=== PATIENT | male | born 1970 | race Caucasian/White ===

== ENCOUNTER 2019-01-23 10:57 | Outpatient (CLI) | payer OTHER ==
[2019-01-23] MEDS ORDERED: IV RINGERS,LACTATED 1000ML 1,000 ML IV SCH (11:10)
[2019-01-23] MEDS ORDERED: fentaNYL PF VIAL 100 MCG/2 ML VIAL ONE ×2 (11:14)
[2019-01-23] MEDS ORDERED: MIDAZOLAM HCL/PF 2 MG/2 ML VIAL. ONE ×2 (11:14)
[2019-01-23] MEDS ORDERED: ONDANSETRON PF 4 MG/2 ML VIAL. IV PRN (11:15)
[2019-01-23] MEDS ORDERED: LIDOCAINE 1% PF 2 ML VIAL. ID PRN (11:15)
[2019-01-23] MEDS ORDERED: fentaNYL PF VIAL 100 MCG/2 ML VIAL IV PRN ×2 (11:15)
[2019-01-23] MEDS ORDERED: KETAMINE HCL IN NACL, ISO-OSM 50 MG/5 ML SYRINGE ONE (11:15)
[2019-01-23] MEDS ORDERED: MORPHINE SULFATE 2 MG/ML VIAL. IV PRN (11:15)
[2019-01-23] MEDS ORDERED: HYDROmorphone 2 MG/ML VIAL IV PRN (11:15)
[2019-01-23] MEDS ORDERED: PROCHLORPERAZINE 10 MG/2 ML VIAL. IV PRN (11:15)
[2019-01-23 12:27] VITALS: BP 135/92
--- NOTE | 2019-01-23 13:22 | RAD ---
MRI Cervical Spine Without Contrast History: Left arm radiculopathy Technique: Multiplanar, multi sequential noncontrast MR imaging was performed of the cervical spine. Comparison: None Findings: There is fairly severe motion degradation. There is no significant cervical cord expansion, cannot accurately evaluate for nonexpansile signal change due to motion. Cervical vertebral body stature and AP alignment are maintained. There is mild degenerative disc disease C5-6, mild disc desiccation C6-7. There is no convincing marrow edema. There is mucosal thickening of the visualized sphenoid and left maxillary sinuses. There is a T2 hyperintense lesion of the central anterior neck about 1.2 cm transverse by 1.8 cm cc by 1.2 cm AP. C2-C3: Spinal canal and neural foramina are adequate. C3-C4: Right facet and uncovertebral degenerative change results in fairly severe narrowing of the right neural foramen, left neural foramen and spinal canal adequate. C4-C5: There is very minimal disc osteophyte complex eccentric to the far right lateral recess. There is right uncovertebral degenerative change. Central canal is borderline about 10 mm on developmental basis. Left neural foramen is adequate, probable overall mild narrowing of the right neural foramen although poorly characterized due to motion. C5-C6: There is disc osteophyte complex, likely superimposed protrusion more eccentric to left lateral recess estimated about 2 mm AP although poorly characterized due to motion. Central canal is likely narrowed about 7 to 8 mm with a somewhat greater degree of left lateral recess stenosis. There is uncovertebral degenerative change greater on the left. There is probable severe narrowing of the left neural foramen, possible at least mild narrowing on the right. C6-C7: There is likely minimal disc osteophyte complex, central canal probably narrowed about 8 to 9 mm although poorly characterized due to motion. There is bilateral facet degenerative change. There is probable minimal narrowing of the right neural foramen, left neural foramen likely adequate. C7-T1: Spinal canal and the neural foramina are overall adequate. Impression: 1. Exam is degraded by fairly significant motion. There is mild spinal stenosis C5-6 and C6-7. 2. Facet degenerative change contributes to neural foramina compromise as stated greatest of the right C3-C4 and on the left at C5-6. 3. There is mild degenerative disc disease C5-6. 4. There is mucosal thickening of visualized sphenoid and left maxillary sinuses. 5. Cystic lesion of the anterior central neck is nonspecific, primary consideration a thyroglossal duct cyst. Electronically signed by: Dk Yusuf MD (01/23/2019 1:19 PM) [facility]
[2019-01-23] MEDS ORDERED: PROPOFOL 10 MG/ML (20ML) VIAL. IV ONE (20:00)
[2019-01-23] MEDS ORDERED: LIDOCAINE 2% 100 MG/5 ML SYRINGE. ONE (20:00)
== END 2019-01-23 13:10 | disposition home or self-care (01) ==
LOC: MRI 10:57
PROVIDERS: ATTEND Orthopaedic Surgery
DX: M50.122 Cervical disc disorder at C5-C6 level with radiculopathy (principal); M48.02 Spinal stenosis, cervical region; M47.22 Other spondylosis with radiculopathy, cervical region; M25.78 Osteophyte, vertebrae; R22.1 Localized swelling, mass and lump, neck
CPT/HCPCS: 72141; 82962; J2250; J2704; J3010